=== PATIENT | male | born 1950 | race Caucasian/White ===

== ENCOUNTER 2017-10-21 11:40 | Emergency (ER) | payer MEDICARE ==
[2017-10-21 12:44] VITALS: BP 138/68
--- NOTE | 2017-10-21 13:08 | ED ---
Skin Complaint - HPI Summary HPI Summary: He had pain in the left lower flank about a week ago. He then noticed a small patch of painful rash on the left lower abd. No fever or chills. - History of Current Complaint Chief Complaint: UCSkin Time Seen by Provider: 10/21/17 12:33 Stated Complaint: SKIN CONCERN Hx Obtained From: Patient Onset/Duration: Started Days Ago Skin Exposure Onset/Duration: Days Ago Timing: Constant, Lasting Days Onset Severity: Moderate Current Severity: Moderate Pain Intensity: 4 Skin Location: Discrete Character: Painful Aggravating Symptom(s): Touch Alleviating Symptom(s): Nothing Associated Signs & Symptoms: Rash, Tenderness - Allergy/Home Medications Allergies/Adverse Reactions: Allergies Allergy/AdvReac Type Severity Reaction Status Date / Time No Known Allergies Allergy Verified 10/21/17 12:39 Home Medications: Home Medications Aspirin [Aspir-Low] 81 mg PO DAILY 10/21/17 [History Confirmed 10/21/17] Ibuprofen 400 mg PO Q8H 10/21/17 [History Confirmed 10/21/17] Simvastatin 20 mg PO DAILY 10/21/17 [History Confirmed 10/21/17] PMH/Surg Hx/FS Hx/Imm Hx Previously Healthy: No - Surgical History Surgery Procedure, Year, and Place: BI-FEM BYPASS Infectious Disease History: No Infectious Disease History: Denies: Traveled Outside the [place] in Last 30 Days - Family History Known Family History: Positive: Other - NO related skin conditions inthe family. - Social History Alcohol Use: None Substance Use Type: Reports: None Smoking Status (MU): Never Smoked Tobacco Review of Systems Positive: Rash All Other Systems Reviewed And Are Negative: Yes Physical Exam Triage Information Reviewed: Yes Vital Signs On Initial Exam: Initial Vitals Temp Pulse Resp BP Pulse Ox 99.2 F 102 17 138/68 98 10/21/17 12:35 10/21/17 12:35 10/21/17 12:35 10/21/17 12:35 10/21/17 12:35 Vital Signs Reviewed: Yes Appearance: Positive: Well-Appearing, No Pain Distress, Well-Nourished Skin: Positive: Skin Color Reflects Adequate Perfusion, Dry, Tender, Soft, Other - Two small patches of macular papular rash on the left lower abd and left lower flank. No induration or abcess.. Negative: Pale, Weeping Skin/ Lesions, Keshav Tracts, Erythema @, Cold Injury, Lymphangitis Head/Face: Positive: Normal Head/Face Inspection Eyes: Positive: Normal, EOMI, BHARATH ENT: Positive: Normal ENT inspection Neck: Positive: Supple, Nontender, No Lymphadenopathy Respiratory/Lung Sounds: Positive: Clear to Auscultation, Breath Sounds Present. Negative: Decreased Breath Sounds Cardiovascular: Positive: RRR. Negative: Murmur, Rub, Tachycardia, Leg Edema Left, Leg Edema Right Abdomen Description: Negative: Distended Musculoskeletal: Positive: Normal, Strength/ROM Intact Neurological: Positive: Normal, Sensory/Motor Intact, Alert, Oriented to Person Place, Time, CN Intact II-III Psychiatric: Positive: Normal, Affect/Mood Appropriate. Negative: Anxious Diagnostics - Vital Signs Vital Signs Temp Pulse Resp BP Pulse Ox 10/21/17 12:35 99.2 F 102 17 138/68 98 - Laboratory Lab Statement: Any lab studies that have been ordered have been reviewed, and results considered in the medical decision making process. Discharge - Discharge Plan Condition: Good Disposition: HOME Prescriptions: Acyclovir* [Zovirax 400 MG TAB*] 400 mg PO 5ID #35 tab predniSONE [Prednisone 20 MG TAB] 40 mg PO DAILY #10 tablet Patient Education Materials: Artem (ED) Referrals: Jorge Bush MD [Primary Care Provider] - - Billing Disposition and Condition Condition: GOOD Disposition: Home
== END 2017-10-21 13:19 | disposition home or self-care (01) ==
LOC: UCCORT 11:40
DX: R21 Rash and other nonspecific skin eruption (principal); Z79.82 Long term (current) use of aspirin
CPT/HCPCS: 99202; G0463